=== PATIENT | male | born 1995 | race Caucasian/White ===

== ENCOUNTER 2024-06-01 23:46 | Emergency (ER) | payer BC ==
[~2024-06-01] VITALS: Ht 182.9 cm; Wt 75.0 kg
[2024-06-02 00:11] VITALS: O2SAT 100
[2024-06-02] MEDS: KETOROLAC 15MG/ML VIAL IM ONE (00:58)
[2024-06-02] MEDS ORDERED: ERYT1OIN6 EACHEYE (01:38)
[2024-06-02] MEDS: AZITHROMYCIN 500 MG TABLET PO ONE (01:53)
[2024-06-02] MEDS: CEFTRIAXONE SODIUM 250MG VIAL IM ONE (01:59)
[2024-06-02 02:01] VITALS: BP 135/89; PULSE 96; RESP 18; TEMP 36.9; O2SAT 100
== END 2024-06-02 02:18 | disposition home or self-care (01) ==
LOC: ER 23:46
DX: A54.31 Gonococcal conjunctivitis (principal)
CPT/HCPCS: 99284; 96372; J0696; J1885; Z7610